=== PATIENT | male | born 1965 | race Caucasian/White ===

== ENCOUNTER → 2020-03-26 | Outpatient (CLI) | payer OTHER ==
--- NOTE | 2020-03-26 09:01 | RAD ---
INDICATION: Reason: ELEVATED LIVER ENZYMES, DECREASED PLATELET COUNT / Spl. Instructions: / History: COMPARISON: None. TECHNIQUE: Grayscale and color ultrasound images obtained through the abdomen. FINDINGS: Aorta/IVC: Visualized portion unremarkable. Pancreas: Partially seen without definite adjacent fluid collection. Portions obscured. Liver: Echogenic Gallbladder: Partially contracted Common Bile Duct: Not dilated. Right Kidney: No hydronephrosis. Left Kidney: No hydronephrosis. Contour deformity is identified as well as hypoechoic structure extending into the hilum. This hypoechoic structure measures up to 33 mm and the contour deformity measures up to 37 mm. Spleen: Unremarkable. IMPRESSION: * Contour deformity of the left kidney as well as hypoechoic structure extending into the hilum. This could be secondary to lobulation and cortical thickening but a left renal mass is not excluded. If additional clarification is desired CT or MRI renal protocol could further assess for an underlying mass. * Spleen is unremarkable. * Liver is echogenic which can be seen with fatty infiltration. Electronically signed by: Jluis Howell MD (03/26/2020 8:58 AM) [id number]
== END ==
LOC: US 07:19
PROVIDERS: ATTEND Physician Assistant
DX: N28.89 Other specified disorders of kidney and ureter (principal); Q63.9 Congenital malformation of kidney, unspecified
CPT/HCPCS: 76700